=== PATIENT | male | born 1990 | race Caucasian/White ===

== ENCOUNTER 2024-04-06 10:23 | Emergency (ER) | payer SELFPAY ==
[2024-04-06 10:30] VITALS: BP 133/83; PULSE 78; RESP 20; TEMP 36.4; O2SAT 98; BMI 40.8
--- NOTE | 2024-04-06 10:38 | DI.RAD.S_ITS ---
PROCEDURE: XR FOOT RT MIN 3V INDICATIONS: right foot pain TECHNIQUE: 3 views of the foot were acquired. COMPARISON: None. FINDINGS: Bones: No acute displaced fracture or dislocation plantar calcaneal mild enthesopathy. Soft tissues: No suspicious calcifications. IMPRESSION: No acute radiographic abnormality. Mild plantar calcaneal enthesopathy. If there is high concern for further derangement, consider MRI evaluation. Dictated by: Rian Falcon M.D. on 04/06/2024 at 11:00 Approved by: Rian Falcon M.D. on 04/06/2024 at 11:00
--- NOTE | 2024-04-06 11:09 | ED.LOWEXIN ---
HPI - Extremity Injury (Lower) General Chief Complaint: Extremity Injury, Lower Stated Complaint: l foot pain Time Seen by Provider: 04/06/24 10:37 Source: patient Mode of arrival: Ambulatory History of Present Illness HPI Narrative: 34-year-old male with right-sided foot pain this morning, had been standing at a 9 hour shift, old footwear, no change in footwear, no blunt injury or other new activities. No history of plantar fasciitis known before. No skin wounds or lesions or punctures. No redness or swelling. Pain is in the plantar aspect of his right foot only. No pain in his right Achilles. Review of Systems Review of Systems Narrative: See HPI Patient History Social History Smoking Status: Never smoker Smoking Status: Never smoker alcohol intake frequency: 0-2 drinks per day Substance Use Type: marijuana Exam Narrative Exam Narrative: GENERAL: Well-developed patient, in mild distress. HEAD: Atraumatic. Normocephalic. EYES: Pupils equal round and reactive. Extraocular motions intact. No scleral icterus. No injection or drainage. ENT: Nose without bleeding, purulent drainage. Throat without erythema, tonsillar hypertrophy or exudate. Airway patent. NECK: Trachea midline. Non tender CARDIOVASCULAR: Regular rate and rhythm without murmurs, gallops, or rubs. RESPIRATORY: Clear to auscultation. Breath sounds equal bilaterally. No wheezes, rales, or rhonchi. GASTROINTESTINAL: Abdomen soft, non-tender, nondistended. EXTREMITIES: Right foot without any gross deformity, no redness or swelling or puncture wounds or abrasions. Some tenderness along the right plantar fascia, no pain on palpation to the calcaneus, nor MTPs. No redness or streaking. No pain or swelling to the distal toes of the right foot, nor to the right ankle, foreleg. BACK: Nontender without deformity or crepitance. No flank tenderness. NEURO: AOx3. SKIN: No rash or erythema of visible areas Initial Vital Signs Initial Vital Signs: Vital Signs Temperature 97.6 F 04/06/24 10:30 Pulse Rate 78 04/06/24 10:30 Respiratory Rate 20 04/06/24 10:30 Blood Pressure 133/83 04/06/24 10:30 Pulse Oximetry 98 04/06/24 10:30 Oxygen Delivery Method Room Air 04/06/24 10:30 Course Orders Ordered: ED Orders 04/06/24 10:38 XR foot RT min 3V Stat Vital Signs Vital signs: Vital Signs - 8 hr 04/06/24 10:30 Temperature 97.6 F Pulse Rate 78 Respiratory Rate 20 Blood Pressure 133/83 Pulse Oximetry 98 Oxygen Delivery Method Room Air MDM - Extremity Injury (Lower) Imaging Data Extremity x-ray #1: Radiologist's Impression: [address] [id number] XRay Report Signed Patient: Connie España MR#: [id number] : 1990 Acct:[id number] Age/Sex: 34 / M Date of Service: 04/06/24 Loc: ED Accession Number: [id number] Procedure: XR foot RT min 3V Ordering Provider: Peng Holman MD PROCEDURE: XR FOOT RT MIN 3V INDICATIONS: right foot pain TECHNIQUE: 3 views of the foot were acquired. COMPARISON: None. FINDINGS: Bones: No acute displaced fracture or dislocation plantar calcaneal mild enthesopathy. Soft tissues: No suspicious calcifications. IMPRESSION: No acute radiographic abnormality. Mild plantar calcaneal enthesopathy. If there is high concern for further derangement, consider MRI evaluation. Dictated by: Rian Falcon M.D. on 04/06/2024 at 11:00 Approved by: Rian Falcon M.D. on 04/06/2024 at 11:00 [facility] Narrative Medical decision making narrative: 34-year-old male with recent standing at work, awoke this morning with right plantar pain, x-ray done from triage was negative for any acute changes, exam consistent with plantar fasciitis, no athlete's foot or infection or puncture or cellulitis changes. We discussed plantar fasciitis conservative treatment including foot/Achilles stretching, cold ice application as needed, use of [id number] anti-inflammatories, preference for new footwear with better arch support, consideration for [id number]-ali-[id number] arch support. Discharged home Discharge Plan Departure Patient Disposition: Home Clinical Impression: Plantar fasciitis of right foot Activity Restrictions/Additional Instructions: Right plantar foot pain, old footwear, no change in footwear, no blunt injury, screening x-rays unremarkable here in the emergency department on from triage, examination consistent with plantar fasciitis of the right foot. Conservative treatment if nothing else has been done yet includes [id number] Motrin, stretching of the Achilles in the foot, ice/cold application as tolerated to the affected areas, preference for new footwear with adequate support, and consider use of [id number] plantar fasciitis like support orthotic insert for the new shoe in replacement of the factory shoe insert. These measures can be quite helpful. For refractory symptoms sometimes physical therapy can be used, also sometimes podiatry referral can be helpful, to get custom orthotics made although this is fairly expensive. Try initial conservative measures mentioned above initially. Off work for the next 2 days, with implementation of measures above. Stand Alone Forms: Patient Portal/API
== END 2024-04-06 11:24 | disposition home or self-care (01) ==
PROVIDERS: Emergency Provider Emergency Medicine
DX: M72.2 Plantar fascial fibromatosis (principal)
CPT/HCPCS: 73630; 99281; 99283

== ENCOUNTER → 2025-02-16 17:09 | Outpatient (CLI) | payer OTHER, SELFPAY ==
--- NOTE | 2025-02-16 17:11 | DI.RAD.S_ITS ---
PROCEDURE: XR KNEE LT 3V INDICATIONS: Left knee strain TECHNIQUE: 3 views of the knee were acquired. COMPARISON: None. FINDINGS: Bones: No fractures or dislocations. No suspicious bony lesions. Soft tissues: No joint effusion. No suspicious soft tissue calcifications. IMPRESSION: No acute osseous abnormality. If pain persists with conservative management, consider repeat x-ray in 10-14 days or cross-sectional imaging. Dictated by: Eliseo Ritchie M.D. on 02/17/2025 at 10:52 Approved by: Eliseo Ritchie M.D. on 02/17/2025 at 10:53
== END ==
PROVIDERS: Referring Provider Nurse Practitioner Family; Visit Provider Nurse Practitioner Family
DX: S86.912A Strain of unspecified muscle(s) and tendon(s) at lower leg level, left leg, initial encounter (principal); X58.XXXA Exposure to other specified factors, initial encounter
CPT/HCPCS: 73562